=== PATIENT | male | born 1955 | race Caucasian/White ===

== ENCOUNTER 2020-06-01 06:40 | Day surgery (SDC) | payer MEDICARE ==
[~2020-06-01] VITALS: Ht 170.2 cm; Wt 71.4 kg
[~2020-06-01 06:40] MED LIST: AMBIEN10 MG PO; ASPIRIN81 MG PO; CLONIDINE HCL0.1 MG PO; FLOMAX0.4 MG PO; FLUOXETINE HCL20 MG PO; GABAPENTIN300 MG PO; METFORMIN HCL500 M2 PO; MUPIROCIN1 GM TOP; OXYCODONE HCL5 MG PO; PRAVACHOL40 MG PO; PREVACID15 MG PO; REVATIO20 MG PO; TESTOSTERO200 MG/11 IM
--- NOTE | 2020-06-01 08:10 | NUR ---
06/01/20 0810 Shannon Casillas 0804-PATIENT ARRIVED TO PACU ON 6L MASK RR EVEN LAYING LEFT LATERAL. PATIENT NONAROUSABLE. ABDOMEN SOFT. SB. IVF INFUSING. PASSING GAS
--- NOTE | 2020-06-01 08:42 | NUR ---
PT ALERT, ORIENTED AND SUPPORTED BY HIS . PT IS HERE FOR HIS FIRST SCOPE. ALL QUESTIONS ASKED ANSWERED. IS LEAVING AND THEIR DAUGHTER WILL PICKUP PT UPON DC. GAVE BLESSING AND WILL FOLLOW NEEDED
--- NOTE | 2020-06-01 11:01 | OR ---
[facility] [place] [facility] [address] [place], [place] [address] Signed DATE OF OPERATION: 06/01/2020 SURGEON: Evie Mijares MD PREOPERATIVE DIAGNOSES: 1. Chronic generalized abdominal pain. 2. Chronic constipation. 3. Recent left lower quadrant abdominal pain, treated with antibiotics. 4. Screening. POSTOPERATIVE DIAGNOSES: 1. 5 mm polyp at 55 cm. 2. 5 mm polyp at 42 cm. 3. Aulmqcz-mc-gbiyxaux left-sided diverticulosis. PROCEDURE: Colonoscopy with hot biopsy. ESTIMATED BLOOD LOSS: None. INDICATIONS: Salvador is a 64-year-old gentleman, who has never undergone previous colonoscopy. He has chronic pain syndrome and has to use opioids. He therefore has chronic constipation associated with chronic generalized abdominal pain. However, more recently he was having left lower quadrant abdominal pain. It was presumed to be diverticular disease, so he was given antibiotics. He feels like that is improved for the most part. In January of 2020, he did have CT scan of the abdomen and pelvis. He has a small left inguinal hernia and diverticulosis without any evidence inflammation at that time. He had been asked to see me with respect to the above. I gave him a pamphlet in the office on diverticulosis as well as colonoscopy. He understands the nature of the colonoscopy. He understands there is risk including, but not limited to gas bloating, crampy abdominal pain, bleeding, perforation requiring surgery, and missed diagnosis. He also understands the need for IV conscious sedation. Given his advanced medical issues and his daily need for opioids, we asked an anesthesia provider to help us with increased monitoring and sedation with propofol. He had expressed understanding and wished to proceed. PROCEDURE NOTE: Salvador was taken into our endoscopy suite and placed in the left lateral decubitus Electronically Signed By: EVIE MIJARES MD 06/01/20 1101 PATIENT NAME: SALVADOR OWEN ODELL OPERATIVE REPORT DATE OF : 51 REPORT #: [id number] PHYSICIAN: EVIE MIJARES MD PCP: EVANGELINA BAY MD REPORT IS CONFIDENTIAL AND NOT TO BE RELEASED WITHOUT AUTHORIZATION [facility] [address] [place], [place] [address] Signed position. He was given IV sedation with propofol per our nurse low altitude air defense officer. A digital rectal exam was performed. He does have some induration and swelling to the prostate. The adult colonoscope was introduced and advanced all around into the cecum under direct visualization of camera without difficulty. His prep was good. We could easily see the appendiceal orifice and the ileocecal valve. We took pictures throughout for photodocumentation. The scope was then slowly withdrawn. The two polyps mentioned above were easily removed with hot biopsy forceps. He does have moderate-sized left-sided diverticulosis. However, there are minimal in number and scattered about in the left and sigmoid colon. Salvador a slight of build at 5 feet 7 inches tall with weight 170 pounds. Consequently, we made several attempts to retroflex the scope in his rectum without success. We simply did not have enough room. However, we did not feel anything specific on digital rectal exam, and we withdrew the scope slowly and did not see anything other than routine hemorrhoid tissue. After this, the gas had been suctioned out. The colonoscope removed. Salvador tolerated the procedure quite well. RECOMMENDATIONS: Salvador will follow up in my office in 7 to 14 days to review his results. Evie Mijares MD ALB/MODL /[id number] cc: MD Evie Rice MD Copies: EVANGELINA BAY MD, ANDREW L MD ~ Electronically Signed By: EVIE MIJARES MD 06/01/20 1101 PATIENT NAME: SALVADOR OWEN ODELL OPERATIVE REPORT DATE OF : 51 REPORT #: [id number] PHYSICIAN: EVIE MIJARES MD PCP: EVANGELINA BAY MD REPORT IS CONFIDENTIAL AND NOT TO BE RELEASED WITHOUT AUTHORIZATION
--- NOTE | 2020-06-02 17:29 | PATH ---
[facility] [address] [place], [place] [address] Signed SPECIMEN(S): A COLON POLYP AT 55 CM SPECIMEN(S): B COLON POLYP AT 42 CM SPECIMEN SOURCE: A. COLON POLYP AT 55 CM B. COLON POLYP AT 42 CM CLINICAL HISTORY: Colonoscopy. Preop: Diverticulosis. Postop: Polyps and diverticulosis. MICROSCOPIC DESCRIPTION: Histologic sections of all submitted blocks are examined by light microscopy. These findings, together with the gross examination, support the pathologic diagnosis. FINAL PATHOLOGIC DIAGNOSIS: A. Colon, polyp at 55 cm, polypectomy: - Cauterized colonic mucosa with changes suggestive of tubular adenoma. - Negative for high-grade dysplasia or malignancy. - See Comment. B. Colon, polyp at 42 cm, polypectomy: - Cauterized colonic mucosa with changes suggestive of tubular adenoma. - Negative for high-grade dysplasia or malignancy. - See Comment. COMMENT: Cautery artifact on both fragments precludes definitive evaluation for low-grade dysplasia. However, changes are present on both that suggest the polyps are both tubular adenomas. NAL:cml:C2NR GROSS DESCRIPTION: Two specimens are received in two containers, labeled "MISSY." A. The specimen, labeled "MISSY, #1," and designated on the requisition "colon polypectomy 55 cm," is received in formalin and consists of one polypoid, brown to warner soft tissue fragment(s) that measure 0.4 cm in greatest dimension. The specimen is entirely submitted in cassette (A1). B. The specimen, labeled "MISSY, #2," and designated on the requisition "colon polypectomy 42 cm," is received in formalin and consists of one, brown to warner soft tissue fragment(s) that measure 0.2 cm in greatest dimension. The specimen is entirely submitted in cassette (B1). PATIENT NAME: CHANTAL OWEN PATHOLOGY DATE OF : 51 REPORT #: [id number] PHYSICIAN: QUANG PATHOLOGY PCP: EVANGELINA BAY MD REPORT IS CONFIDENTIAL AND NOT TO BE RELEASED WITHOUT AUTHORIZATION [facility] [address] [place], [place] [address] Signed AI (under the direct supervision of a pathologist) The Gross Description was prepared using a voice recognition system. The report was reviewed for accuracy; however, sound-alike word errors, addition and/or deletions may occur. If there is any question about this report, please contact Client Services. PERFORMING LABORATORY: The technical component was performed by [email or web address] [address] (Jinriksha Driver: Sophie Horner MD; CLIA# [id number]). [facility], [address] [address] (CLIA# [id number]). Diagnostician: Trish Braun MD Pathologist Electronically Signed 06/02/2020 Copies: ~ PATIENT NAME: CHANTAL OWENN PATHOLOGY DATE OF : 51 REPORT #: [id number] PHYSICIAN: QUANG KLINE PCP: EVANGELINA BAY MD REPORT IS CONFIDENTIAL AND NOT TO BE RELEASED WITHOUT AUTHORIZATION
== END 2020-06-01 08:40 | disposition home or self-care (01) ==
LOC: DS 06:40 → OPS 06:40 → DS 06:45 → OPS 06:45
PROVIDERS: ATTEND Colon & Rectal Surgery
PROC: 0DBK8ZX Excision of Ascending Colon, Via Natural or Artificial Opening Endoscopic, Diagnostic (ICD-10-PCS; principal; 2020-06-01 06:45)
DX: K57.30 Diverticulosis of large intestine without perforation or abscess without bleeding (principal); R10.32 Left lower quadrant pain; E78.5 Hyperlipidemia, unspecified; I10 Essential (primary) hypertension; E11.9 Type 2 diabetes mellitus without complications; G89.4 Chronic pain syndrome; Z79.84 Long term (current) use of oral hypoglycemic drugs
CPT/HCPCS: J2001; J2704; J7121

== ENCOUNTER 2022-12-20 15:37 | Emergency (ER) | payer MEDICARE ==
[~2022-12-20] VITALS: Ht 170.2 cm; Wt 78.0 kg
--- OUTSIDE RECORDS SUMMARY | ~2022-12-20 | XMS | Continuity of Care Document ---
Demographics + + + | Address | [address] | | | [place] [address] | + + + | Preferred Language | Unknown | + + + | Marital Status | | + + + | Anglican Affiliation | Unknown | + + + | Race | White | + + + | Ethnic Group | Not or | + + + Author + + + | Author | [place] | + + + | Organization | [place] | + + + | Address | [address] | | | [place] [address] | + + + | Phone | | + + + Care Team Providers + + + + | Care Eeg Tech Name | Role | Phone | + + + + Unavailable | Unavailable | + + + + Allergies and Intolerances + + + + + + | date | description | facility | reaction | severity | + + + + + + | (no date) | cephalexin | [facility] | (no reaction) | (no severity) | + + + + + + | (no date) | doxycycline | [facility] | (no reaction) | (no severity) | + + + + + + | (no date) | erythromycin | [facility] | (no reaction) | (no severity) | | | base | | | | + + + + + + | (no date) | azithromycin | [facility] | (no reaction) | (no severity) | + + + + + + | (no date) | venlafaxine | [facility] | (no reaction) | (no severity) | + + + + + + | (no date) | pregabalin | [facility] | (no reaction) | (no severity) | + + + + + + | (no date) | KETOLIDES | [facility] | (no reaction) | (no severity) | + + + + + + Encounters No information. Functional Status No information. Immunizations No information. Medications No information. 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, | | | | LUMBAR REGION | | + + + + | 2022-05-23 14:14 | OTHER SPECIFIED | [facility] | | | POSTPROCEDURAL STATES | | + + + + | 2022-10-24 13:40 | SLEEP APNEA, UNSPECIFIED | [facility] | + + + + | 2022-10-24 13:40 | OTHER SPECIFIED DEFORMING | [facility] | | | DORSOPATHIES, SITE UNSPE | | + + + + | 2022-10-24 13:40 | SPONDYLS W/O MYELOPATHY OR | [facility] | | | RADICULOPATHY, LUMBOSAC | | + + + + | 2022-10-24 13:40 | LOW BACK PAIN, UNSPECIFIED | [facility] | | | | | + + + + | 2022-10-24 13:40 | CARE HOME (CURRENT) USE OF | [facility] | | | OPIATE ANALGESIC | | + + + + | 2022-12-18 07:57 | SLEEP APNEA, UNSPECIFIED | [facility] | + + + + | 2022-12-18 07:57 | LOW BACK PAIN, UNSPECIFIED | [facility] | | | | | + + + + | 2022-12-18 07:57 | OTHER LOW BACK PAIN | [facility] | + + + + | 2022-12-18 07:57 | STRAIGHTENER AND ALIGNER (CURRENT) USE OF | [facility] | | | OPIATE ANALGE | | + + + + | 2022-12-18 08:00 | OTHER LOW BACK PAIN | [facility] | + + + + | 2022-12-18 08:00 | CARE HOME (CURRENT) USE OF | [facility] | | | OPIATE ANALGE | | + + + + Procedures No information. Results/Labs No information. Social History No information. Vital Signs No information."
--- OUTSIDE RECORDS SUMMARY | ~2022-12-20 | XMS | Continuity of Care Document ---
Demographics + + + | Address | [address] | | | [place] [address] | + + + | Preferred Language | Unknown | + + + | Marital Status | | + + + | Holiness Affiliation | Unknown | + + + | Race | White | + + + | Ethnic Group | Not or | + + + Author + + + | Author | [place] | + + + | Organization | [place] | + + + | Address | [address] | | | [place] [address] | + + + | Phone | | + + + Care Team Providers + + + + | Care Senior Geologist Name | Role | Phone | + [...] + + + | 2022-10-24 13:40 | HALF-WAY (CURRENT) USE OF | [facility] | | [...] + + + | 2022-12-18 07:57 | HEALTH SCIENCE SPECIALIST (CURRENT) USE OF | [facility] | | | OPIATE ANALGE | | + + + + | 2022-12-18 08:00 | OTHER LOW BACK PAIN | [facility] | + + + + | 2022-12-18 08:00 | HALF-WAY (CURRENT) USE OF | [facility] | | | OPIATE ANALGE | | + + + + Procedures No information. Results/Labs No information. Social History No information. Vital Signs No information."
--- OUTSIDE RECORDS SUMMARY | 2022-12-20 15:41 | XMS ---
PreManage Notification: CHANTAL OWEN Security Patient Account Representative Events No recent Security Events currently on file CRITERIA MET - [facility] PROVIDERS SHANICE REID Physician Picker Machine Operator Current PHONE: [phone] Gordo has no Care Guidelines for this patient. EDonna VISIT COUNT (12 MO.) 1 GUNJAN Curran TOTAL 1 NOTE: Visits indicate total known visits. ED/UCC VISIT TRACKING (12 MO.) 12/20/2022 15:38 GUNJAN Wilde OR TYPE: Emergency COMPLAINT: - CHEST PAIN INPATIENT VISIT TRACKING (12 MO.) No inpatient visits to display in this time frame [email or web address]
[2022-12-20 16:21] LABS: BASOPHILS 0.6 % (0-2); EOSINOPHILS 2.1 % (0-6); HEMATOCRIT 48.9 % (35.0-50.0); HEMOGLOBIN 16.1 g/dL (12.0-18.0); LYMPHOCYTES 17.6 % (24-44); MCH 26.8 (27-36); MCHC 32.9 g/dl (30-36); MCV 81.7 fl (81-99); MONOCYTES 8.7 % (0-12); PLATELET COUNT 267 K/uL (140-440); RBC 5.98 M/ul (4.3-5.7); RDW 14.2 (10.5-15.0)
[2022-12-20 16:50] LABS: ALBUMIN 3.8 g/dL (3.4-5.0); ALBUMIN/GLOBULIN RATIO 1.06 (1.1-2.4); ANION GAP 10.3 (7-21); BILIRUBIN, TOTAL 0.3 ng/dL (0.2-1.0); BUN/CREATININE RATIO 8.6 (6.0-28.6); CALCIUM 9.1 mg/dL (8.5-10.1); CREATININE, SERUM 1.51 mg/dL (0.70-1.30); POTASSIUM 4.3 mmol/L (3.5-5.1); PROTEIN, TOTAL 7.4 g/dL (6.4-8.2)
[2022-12-20] MEDS ORDERED: NITROGLYCERIN0.4 MG SL (19:56)
[2022-12-20 20:15] VITALS: BP 128/73
--- NOTE | 2022-12-22 17:07 | EKG ---
[facility] [address] [facility] [place] [address] Signed Sinus tachycardia Otherwise normal ECG When compared with ECG of 25-MAY-2020 11:48, premature ventricular complexes are no longer present premature supraventricular complexes are no longer present Confirmed by JAMIE ESCALANTE MD ([id number]) on 12/22/2022 5:07:36 PM Electronically Signed By: JAMIE ESCALANTE 12/22/22 1707 PATIENT NAME: CHANTAL OWEN Electrocardiogram DATE OF : 51 PHYSICIAN: JAMIE ESCALANTE REPORT #: [id number] REPORT IS CONFIDENTIAL AND NOT TO BE RELEASED WITHOUT AUTHORIZATION
== END 2022-12-20 20:15 | disposition home or self-care (01) ==
LOC: ED 15:37
PROVIDERS: Emergency Medicine
DX: R07.9 Chest pain, unspecified (principal); Z20.822 Contact with and (suspected) exposure to COVID-19; Z87.891 Personal history of nicotine dependence; Z88.1 Allergy status to other antibiotic agents; Z88.8 Allergy status to other drugs, medicaments and biological substances; Z79.899 Other long term (current) drug therapy; Z79.84 Long term (current) use of oral hypoglycemic drugs; Z79.82 Long term (current) use of aspirin
CPT/HCPCS: 36415; 71045; 80053; 84484; 85025; 85379; 93005; 93010; 99285-25; C9803; U0002